=== PATIENT | male | born 1975 | race Caucasian/White ===

== ENCOUNTER 2018-01-07 20:15 | Emergency (ER) | payer OTHER, SELFPAY ==
[2018-01-07 20:38] VITALS: BP 134/78; PULSE 82; RESP 15; TEMP 36.8; O2SAT 95
--- NOTE | 2018-01-07 20:46 | ED.WOUNDLAC ---
HPI - Wound/Laceration <ARTURO Kovacs Last Filed: 01/07/18 22:41> General Chief Complaint: Wound/Laceration Stated Complaint: POKED BY NAIL RIGHT FOOT Time Seen by Provider: 01/07/18 20:46 Source: patient Mode of arrival: ambulatory Limitations: no limitations History of Present Illness HPI narrative: This healthy 42-year-old male stepped on board work to reach something and punctured his right foot with a nail. The nail did go through the Vibram sole of his shoe and he states barely punctured his skin. He does not have an up-to-date tetanus vaccine so comes to the ED today for this. He denies pain, redness, fever or other new complaints. Related Data Previous Rx's Medication Instructions Recorded levofloxacin [Levaquin] 500 mg PO DAILY 4 Days tab 01/07/18 Allergies Allergy/AdvReac Type Severity Reaction Status Date / Time No Known Drug Allergies Allergy Verified 01/07/18 20:37 Review of Systems <ARTURO Kovacs Last Filed: 01/07/18 22:41> Review of Systems All systems reviewed & are unremarkable except as noted in HPI and below Exam <Romana Rivera PA-C - Last Filed: 01/07/18 22:41> Narrative Exam Narrative: GENERAL APPEARANCE: Patient sitting comfortably, in no distress. LUNGS: Clear to auscultation bilaterally. HEART: Rate and rhythm regular without murmur, normal S1 and S2, no S3 or S4. DERMATOLOGIC: There is a small superficial puncture wound on the right foot dorsum with a 1 cm patch of ecchymoses surrounding. Minimally tender to touch MUSCULOSKELETAL: Full range of motion of the right foot without tenderness NEUROVASCULAR: Right foot is warm and pink with brisk cap refill, sensation grossly intact Initial Vital Signs Initial Vital Signs: Vital Signs Temperature 98.2 F 01/07/18 20:38 Pulse Rate 82 01/07/18 20:38 Respiratory Rate 15 01/07/18 20:38 Blood Pressure 134/78 H 01/07/18 20:38 Pulse Oximetry 95 01/07/18 20:38 <Juan Carlos Caceres DO - Last Filed: 01/08/18 04:51> Initial Vital Signs Initial Vital Signs: Vital Signs Temperature 98.2 F 01/07/18 20:38 Pulse Rate 82 01/07/18 20:38 Respiratory Rate 15 01/07/18 20:38 Blood Pressure 134/78 H 01/07/18 20:38 Pulse Oximetry 95 01/07/18 20:38 Course <Romana Rivera PA-C - Last Filed: 01/07/18 22:41> Additional Information: Advised patient on antibiotic prophylaxis for Pseudomonas given nature of wound. He was given a dose of Levaquin here tonight and a prescription to fill. Black box warning reviewed. Orders Ordered: Discontinued Medications Diphtheria/Tetanus/Acell Pertussis (Adacel) 0.5 ml IM .ONCE ONE Stop: 01/07/18 20:55 Last Admin: 01/07/18 20:56 Dose: 0.5 ml Levofloxacin (Levaquin) 500 mg PO NOW ONE Stop: 01/07/18 20:55 Last Admin: 01/07/18 20:55 Dose: 500 mg Vital Signs - 8 hr 01/07/18 21:16 Temperature 97.9 F Pulse Rate 79 Respiratory Rate 16 Blood Pressure 121/80 H Pulse Oximetry 94 <Juan Carlos Caceres DO - Last Filed: 01/08/18 04:51> Orders Ordered: Discontinued Medications Diphtheria/Tetanus/Acell Pertussis (Adacel) 0.5 ml IM .ONCE ONE Stop: 01/07/18 20:55 Last Admin: 01/07/18 20:56 Dose: 0.5 ml Levofloxacin (Levaquin) 500 mg PO NOW ONE Stop: 01/07/18 20:55 Last Admin: 01/07/18 20:55 Dose: 500 mg Vital Signs - 8 hr 01/07/18 21:16 Temperature 97.9 F Pulse Rate 79 Respiratory Rate 16 Blood Pressure 121/80 H Pulse Oximetry 94 Discharge Plan Departure Patient Disposition: Home, Self-Care Clinical Impression: Puncture wound of foot, right Discharge Date/Time: 01/07/18 21:16 Interventions: ED Discharge Assessment Last Done: 01/07/18 21:16 Instructions: DI for Puncture Wound Activity Restrictions/Additional Instructions: Return as we talked about if you have any signs of infection over the weekend, i.e. spreading redness, pain, swelling, or fever. Otherwise, take the next dose of antibiotic tomorrow evening. Use [id number] pain medicine as needed. You can place a thick corn pad with a hole in the middle around the wound if needed for comfort Prescriptions: New levofloxacin [Levaquin] 500 mg tablet 500 mg PO DAILY 4 Days RF: 0 Referrals: Stanley Roberts MD [Non-Staff] - <Juan Carlos Caceres DO - Last Filed: 01/08/18 04:51> Cosign ED Attending Marycruz Attestation: I was immediately available in the department for consultation. Documentation has been reviewed. I agree with assessment and plan.
[2018-01-07] MEDS: levoFLOXacin 500 MG TABLET PO (20:55)
[2018-01-07] MEDS: TET,DIPH,PERTUSS(ACELL),VAC/PF 0.5 ML SYRINGE IM (20:56)
[2018-01-07 21:16] VITALS: BP 121/80; PULSE 79; RESP 16; TEMP 36.6; O2SAT 94
== END 2018-01-07 21:16 | disposition home or self-care (01) ==
PROVIDERS: Emergency Provider Internal Medicine
DX: S91.331A Puncture wound without foreign body, right foot, initial encounter (principal); W45.0XXA Nail entering through skin, initial encounter; Y99.0 Civilian activity done for income or pay
CPT/HCPCS: 90471; 99283; 90715

== ENCOUNTER → 2020-09-25 16:08 | Outpatient (CLI) | payer OTHER, SELFPAY ==
--- NOTE | 2020-09-25 16:10 | DI.RAD.S_ITS ---
PROCEDURE: XR RIBS RT MIN 3V W CXR 1V INDICATIONS: right lateral lower rib cage pain TECHNIQUE: 2 views of the right ribs were acquired, along with a single view chest. COMPARISON: None. FINDINGS: Surgical changes and devices: None. Bb marker overlies the inferior lateral right ribs. Bones and chest wall: No fractures or dislocations. No suspicious bony lesions. Overlying soft tissues appear unremarkable. Lungs and pleura: No pleural effusions or pneumothorax. Lungs appear clear. Accessory right azygos fissure. Mediastinum: Mediastinal contours appear normal. Heart size is normal. IMPRESSION: No acute cardiopulmonary abnormality. No right inferior lateral rib abnormality identified. If concern about right upper quadrant abdominal pathology consider ultrasound or CT abdomen pelvis with IV contrast. Dictated by: Javier Alfaro M.D. on 09/25/2020 at 15:54 Approved by: Javier Alfaro M.D. on 09/25/2020 at 15:57
[2020-09-25 18:52] LABS: D Dimer 240 ng/mL (<230)
== END ==
PROVIDERS: Referring Provider Physician Assistant; Visit Provider Physician Assistant
DX: R07.81 Pleurodynia (principal); R07.89 Other chest pain
CPT/HCPCS: 36415; 71101; 85379